=== PATIENT | female | born 1975 | race Caucasian/White ===

== ENCOUNTER 2021-05-15 21:06 | Emergency (ER) | payer MEDICAID ==
[~2021-05-15] VITALS: Ht 165.1 cm; Wt 88.6 kg
[~2021-05-15 21:06] MED LIST: B-1100 MG PO; FOLIC ACID 11 MG/TA1 PO; LORTAB 5/500 501 TAB PO; NO HOME MEDICATIONS
[2021-05-15] MEDS ORDERED: MOTRIN 800800 MG/TAB PO (21:41)
[2021-05-15] MEDS ORDERED: SOMA 350MG350 MG/TAB PO (21:41)
[2021-05-15] MEDS ORDERED: PERCOCET 325 MG1 TA2 PO (21:41)
[2021-05-15 22:54] VITALS: BP 131/79; PULSE 96; TEMP 98.6
== END 2021-05-15 22:28 | disposition home or self-care (01) ==
LOC: COL.ER 21:06
DX: M54.32 Sciatica, left side (principal)
CPT/HCPCS: J2270

== ENCOUNTER 2021-06-10 18:25 | Emergency (ER) | payer MEDICAID ==
[~2021-06-10] VITALS: Ht 165.1 cm; Wt 88.6 kg
[~2021-06-10 18:25] MED LIST changes: +MOTRIN 800800 MG/TAB PO; +PERCOCET 325 MG1 TA2 PO; +SOMA 350MG350 MG/TAB PO
[2021-06-10 18:41] VITALS: BP 135/82; PULSE 89; TEMP 98.4
[2021-06-10] MEDS ORDERED: FLEXERIL 1010 MG/TAB PO (19:11)
[2021-06-10] MEDS ORDERED: MEDROL 4MG DOSPA4 MG PO (19:11)
[2021-06-10] MEDS ORDERED: NORCO 325 MG-51 TAB PO (19:11)
== END 2021-06-10 19:50 | disposition home or self-care (01) ==
LOC: COL.ER 18:25
DX: M54.42 Lumbago with sciatica, left side (principal); F17.210 Nicotine dependence, cigarettes, uncomplicated
CPT/HCPCS: J1885

== ENCOUNTER 2022-04-27 22:16 | Emergency (ER) | payer MEDICAID ==
[~2022-04-27] VITALS: Ht 160 cm; Wt 86.4 kg
[~2022-04-27 22:16] MED LIST changes: +FLEXERIL 1010 MG/TAB PO; +MEDROL 4MG DOSPA4 MG PO; +NORCO 325 MG-51 TAB PO
[2022-04-27 22:22] VITALS: BP 133/93; TEMP 97.8
[2022-04-27 22:40] VITALS: PULSE 90
== END 2022-04-27 22:50 | disposition home or self-care (01) ==
LOC: COL.ER 22:16
DX: U07.1 COVID-19 (principal); F17.210 Nicotine dependence, cigarettes, uncomplicated; Z28.310 Unvaccinated for COVID-19

== ENCOUNTER 2023-09-29 08:33 | Emergency (ER) | payer SELFPAY ==
[~2023-09-29] VITALS: Ht 160 cm; Wt 86.4 kg
[2023-09-29 10:29] VITALS: TEMP 97.9
[2023-09-29 11:29] LABS: BASO # 0.1 K/mm3 (0.0-0.2); BASO % 0.5 % (0.0-2.0); EOS # 0.2 K/mm3 (0.0-0.7); GRAN # 5.9 K/mm3 (1.4-6.5); GRAN % 61.9 % (42.2-75.2); HEMATOCRIT 45.5 % (37.0-47.0); HEMOGLOBIN 15.3 g/dl (12.5-16.0); LYMPH # 2.9 K/mm3 (1.2-3.4); LYMPH % 30.1 % (20.0-51.0); MEAN CELL VOLUME 105 fl (80.0-100.0); MEAN CORPUSCULAR HEMOGLOBIN 35 pg (27-31); MEAN CORPUSCULAR HGB CONC 34 g/dl (33.0-37.0); MEAN PLATELET VOLUME 10.4 fl (7.4-10.4); MONO # 0.5 K/mm3 (0.1-0.6); MONO % 5.3 % (1.7-9.3); PLATELET COUNT 206 K/mm3 (130-400); RED BLOOD COUNT 4.32 M/mm3 (4.10-5.30); REDCELL DISTRIBUTION WIDTH-CV 13.2 % (11.5-14.5)
[2023-09-29 11:45] LABS: ALANINE AMINOTRANSFERASE 116 U/L (0-55); ALBUMIN 3.6 gm/dL (3.5-5.0); ALKALINE PHOSPHATASE 77 U/L (40-150); ANION GAP 11 mmol/L (7-16); AST,SGOT 113 U/L (5-34); BILIRUBIN,TOTAL 0.3 mg/dL (0.2-1.2); BLOOD UREA NITROGEN 22 mg/dL (7-19); CALCIUM 9.2 mg/dL (8.4-10.2); CARBON DIOXIDE 21 mmol/L (22-29); CHLORIDE 110 mmol/L (98-107); CREATININE, serum 0.74 mg/dL (0.57-1.11); GLUCOSE 113 mg/dL (70-99); LIPASE 61 U/L (8-78); POTASSIUM 4.2 mmol/L (3.5-4.5); SODIUM 142 mmol/L (136-145); TOTAL PROTEIN 7.1 gm/dL (6.2-8.1)
[2023-09-29 11:50] LABS: TROPONIN-I < 0.010 ng/mL (0.00-0.033)
[2023-09-29 13:23] VITALS: BP 99/52; PULSE 68
== END 2023-09-29 13:37 | disposition home or self-care (01) ==
LOC: COL.ER 08:33
PROVIDERS: Nurse Practitioner Primary Care
DX: R07.89 Other chest pain (principal); K76.0 Fatty (change of) liver, not elsewhere classified; F17.210 Nicotine dependence, cigarettes, uncomplicated
CPT/HCPCS: J1885; J2405; Q9967